=== PATIENT | male | born 1990 ===

== ENCOUNTER 2017-10-29 14:34 | Emergency (ER) | payer MEDICAID, OTHER ==
[2017-10-29 14:53] VITALS: RESP 18; TEMP 98.2
--- NOTE | 2017-10-29 15:37 | C.PDOC ---
History Of Present Illness 26 year old male presents to the ER with a complaint right knee pain after he twisted his knee while walking 3 days ago. Patient states the pain worsens with walking, he reports having mild swelling and applying ice to the knee with relief. Denies weakness or numbness. Time Seen by Provider: 10/29/17 15:22 Chief Complaint (Nursing): Lower Extremity Problem/Injury History Per: Patient History/Exam Limitations: no limitations Onset/Duration Of Symptoms: Days Current Symptoms Are (Timing): Still Present Recent travel outside of the [place]: No - Knee Description Of Injury: Twisted Past Medical History Reviewed: Historical Data, Nursing Documentation, Vital Signs Vital Signs: Last Vital Signs Temp 98.2 F 10/29/17 14:51 Pulse 55 L 10/29/17 16:00 Resp 18 10/29/17 16:00 BP 124/76 10/29/17 16:00 Pulse Ox 98 10/29/17 16:38 - Medical History PMH: No Chronic Diseases Family History: States: Unknown Family Hx - Social History Hx Alcohol Use: Yes Hx Substance Use: No - Immunization History Hx Tetanus Toxoid Vaccination: No Hx Influenza Vaccination: No Hx Pneumococcal Vaccination: No Review Of Systems Except As Marked, All Systems Reviewed And Found Negative. Musculoskeletal: Positive for: Leg Pain Neurological: Negative for: Weakness, Numbness Physical Exam - Physical Exam Appears: Non-toxic, No Acute Distress Skin: Normal Color, Warm, Dry Head: Atraumatic, Normacephalic Eye(s): bilateral: Normal Inspection, EOMI Neck: Normal ROM Chest: Symmetrical Extremity: Tenderness (Mild to medial right knee), Capillary Refill (<2 seconds) , No Deformity, No Swelling Neurological/Psych: Oriented x3, Normal Speech, Normal Motor, Normal Sensation Gait: Steady ED Course And Treatment O2 Sat by Pulse Oximetry: 98 (Room air) Pulse Ox Interpretation: Normal Medical Decision Making Medical Decision Making: Based on history and exam, no clinical suspicion for fracture thus xray not clinically indicated. Recommend knee immobilizer, rest, ice and analgesics. Advised to follow up with ortho if the pain persists and may need outpatient MRI. He states has his own knee brace at home, just wants pain meds. Disposition Counseled Patient/Family Regarding: Diagnosis, Need For Followup, Rx Given - Disposition Referrals: Waylon Wetzel MD [Staff Provider] - Disposition: HOME/ ROUTINE Disposition Time: 15:35 Condition: GOOD Additional Instructions: . Please apply ice to area 15 minutes three times a day. Take Motrin as needed for pain every 6 hours, with food to not upset stomach. Follow up with orthopedic if pain persists over one week. Prescriptions: Naproxen [Naprosyn] 1 tab PO BID PRN #25 tab PRN Reason: Pain Instructions: Knee Sprain (DC) Forms: [employer] (Armenian) - POA Present On Arrival: None - Clinical Impression Clinical Impression: Knee sprain - PA / [employer] / Resident Statement MD/DO has reviewed & agrees with the documentation as recorded. - Scribe Statement The provider has reviewed the documentation as recorded by the Scribreynold Viera All medical record entries made by the Waldemaribreynold were at my direction and personally dictated by me. I have reviewed the chart and agree that the record accurately reflects my personal performance of the history, physical exam, medical decision making, and the department course for this patient. I have also personally directed, reviewed, and agree with the discharge instructions and disposition.
[2017-10-29 16:13] VITALS: BP 124/76; PULSE 55
[2017-10-29 16:37] VITALS: O2SAT 98
== END 2017-10-29 16:01 | disposition home or self-care (01) ==
LOC: C.ER 14:34
DX: S83.91XA Sprain of unspecified site of right knee, initial encounter (principal); X50.9XXA Other and unspecified overexertion or strenuous movements or postures, initial encounter; Y93.01 Activity, walking, marching and hiking